=== PATIENT | female | born 1965 | race Caucasian/White ===

== ENCOUNTER 2022-10-18 11:21 | Outpatient (CLI) | payer BC | END 2022-10-18 11:22 | disposition home or self-care (01) | LOC: CSHMAMMO 11:21 | PROVIDERS: ATTEND Obstetrics & Gynecology | DX: Z12.31 Encounter for screening mammogram for malignant neoplasm of breast (principal) | CPT/HCPCS: 77063; 77067 ==

== ENCOUNTER 2022-11-09 09:06 | Outpatient (CLI) | payer BC ==
[2022-11-09 10:40] LABS: Hematocrit 42.6 % (34.9-44.5); Hemoglobin 14.4 g/dL (12.0-15.5); Mean Corpuscular HGB CONC 33.8 g/dL (32.0-36.0); Mean Corpuscular Hemoglobin 28.9 pg (27.0-33.0); Mean Corpuscular Volume 85.4 fl (81.6-98.3); Mean Platelet Volume 10.8 fl (7.4-10.4); Platelet Count 258 10x3/uL (150-450); RBC Distribution Width 12.3 % (11.5-14.5); Red Blood Cell (RBC) Count 4.99 10x6/uL (3.90-5.03); White Blood Cell (WBC) Count 5.9 10x3/uL (3.5-10.5)
[2022-11-09 10:48] LABS: Anion Gap 15 mmol/L (10-20); BUN (Urea Nitrogen) 16 mg/dL (9.8-20.1); Calc. Creatinine Clearance 0 mL/min (70-130); Calcium 9.6 mg/dL (7.8-10.44); Carbon Dioxide 25 mmol/L (22-29); Chloride 103 mmol/L (98-107); Estimated GFR 95; Glucose 94 mg/dL (70-105); Sodium 139 mmol/L (136-145)
== END 2022-11-09 09:07 | disposition home or self-care (01) ==
LOC: CSHLAB 09:06
PROVIDERS: ATTEND Obstetrics & Gynecology
DX: Z01.818 Encounter for other preprocedural examination (principal); N87.1 Moderate cervical dysplasia; F17.200 Nicotine dependence, unspecified, uncomplicated
CPT/HCPCS: 80048; 85027; 93005; 93010

== ENCOUNTER 2022-11-13 05:41 | Day surgery (SDC) | payer BC ==
[2022-11-08 15:16] VITALS: BMI 34.9
[2022-11-13] MEDS ORDERED: EPINEPHrine 1 MG/ML VIAL ONE (06:17)
[2022-11-13] MEDS ORDERED: Bupivacaine PF 0.5% 30 ML VIAL ONE (06:18)
[2022-11-13] MEDS ORDERED: metroNIDAZOLE 500 MG/100 ML BAG ONE (06:56)
[2022-11-13] MEDS ORDERED: fentaNYL 50 mcg/mL 1 mL Vial ONE ×2 (07:06→07:17)
[2022-11-13] MEDS ORDERED: PROPOFOL 20 ML ONE ×2 (07:06→07:16)
[2022-11-13] MEDS ORDERED: Midazolam HCl 2 mg/2 ml Vial ONE (07:06)
[2022-11-13] MEDS ORDERED: Lidocaine 1% PF 5 ML VIAL ONE (07:07)
[2022-11-13] MEDS ORDERED: Ondansetron PF 4 MG/2 ML Vial ONE (07:39)
[2022-11-13] MEDS ORDERED: Dexamethasone 4 mg/ml Vial ONE (07:39)
[2022-11-13] MEDS ORDERED: Ketorolac Tromethamine 30 MG/ML VIAL ONE (07:39)
[2022-11-13] MEDS ORDERED: Meperidine HCl/PF 25 MG/ML VIAL ONE (08:12)
== END 2022-11-13 09:35 | disposition home or self-care (01) ==
LOC: CSHSDC 05:41
PROVIDERS: ATTEND Obstetrics & Gynecology
PROC: 0UBC7ZZ Excision of Cervix, Via Natural or Artificial Opening (ICD-10-PCS; principal; 2022-11-13)
DX: N87.1 Moderate cervical dysplasia (principal); N87.0 Mild cervical dysplasia; I10 Essential (primary) hypertension; E03.9 Hypothyroidism, unspecified; Z79.890 Hormone replacement therapy; Z79.899 Other long term (current) drug therapy; Z88.0 Allergy status to penicillin
CPT/HCPCS: 88305; 88307; J0171; J1100; J1885; J2175; J2250; J2405; J2704; J3010; S0020

== ENCOUNTER 2023-12-18 10:43 | Outpatient (CLI) | payer BC | END 2023-12-18 10:44 | disposition home or self-care (01) | LOC: CSHMAMMO 10:43 | PROVIDERS: ATTEND Obstetrics & Gynecology | DX: Z12.31 Encounter for screening mammogram for malignant neoplasm of breast (principal) | CPT/HCPCS: 77063; 77067 ==

== ENCOUNTER 2025-01-07 08:19 | Outpatient (CLI) | payer BC | END 2025-01-07 08:20 | disposition home or self-care (01) | LOC: CSHMAMMO 08:19 | PROVIDERS: ATTEND Obstetrics & Gynecology | DX: Z12.31 Encounter for screening mammogram for malignant neoplasm of breast (principal); R92.1 Mammographic calcification found on diagnostic imaging of breast | CPT/HCPCS: 77063; 77067 ==

== ENCOUNTER 2025-01-14 15:23 | Outpatient (CLI) | payer BC | END 2025-01-14 15:24 | disposition home or self-care (01) | LOC: CSHDTY/OP 15:23 | PROVIDERS: ATTEND Family Medicine | DX: Z71.3 Dietary counseling and surveillance (principal); I10 Essential (primary) hypertension | CPT/HCPCS: 97802 ==